=== PATIENT | female | born 1970 | race Caucasian/White ===

== ENCOUNTER 2020-07-17 00:26 | Emergency (ER) | payer OTHER ==
[~2020-07-17] VITALS: Ht 162.6 cm; Wt 62.7 kg
[~2020-07-17 00:26] MED LIST: METOPROLOL25 M1 OR
[2020-07-17] MEDS ORDERED: LEVOTHYROXIN75 MC1 PO (00:47)
[2020-07-17] MEDS ORDERED: PRAVASTATIN40 MG PO (00:47)
[2020-07-17] MEDS ORDERED: LOTENSIN HCT1 TA2 PO (00:47)
[2020-07-17 01:19] LABS: HEMOGLOBIN 12.5 g/dl (12.0-16.0); IMMATURE GRANULOCYTES 0.4 % (0.0-5.0); MEAN CELL VOLUME 90.9 fL CALC (80.0-100.0); MEAN CORPUSCULAR HGB 30.7 pG CALC (26.0-32.0); MEAN CORPUSCULAR HGB CONC 33.8 g/dL CAL (32.0-36.0); NEUT# 5.86 thou/uL (2.00-7.15); RED BLOOD COUNT 4.07 mill/uL (4.20-5.60); RED CELL DISTRI WIDTH 12.3 % (11.5-15.5)
[2020-07-17 01:39] LABS: ALBUMIN 4.2 g/dL (3.2-5.0); ALKALINE PHOSPHATASE 116 u/l (38-126); ANION GAP 13 (6-22 (CALC)); BILIRUBIN, TOTAL 0.3 mg/dL (0.0-1.4); BUN 25 mg/dL (7-17); BUN/CREATININE RATIO 28 (12-20 (CALC)); CARBON DIOXIDE 24 mmol/l (22-30); CHLORIDE 100 mmol/l (95-108); CREATININE 0.9 mg/dL (0.5-1.0); GFR > 60 ML/MIN (>=60 (CALC)); GFR FOR AFR.AMER. > 60 ML/MIN (>=60 (CALC)); POTASSIUM 3.5 mmol/l (3.5-5.1); SODIUM 133 mmol/l (137-146); TOTAL PROTEIN 6.9 g/dL (6.3-8.2)
[2020-07-17 01:52] LABS: MYOGLOBIN 34 ng/mL (0 - 62)
[2020-07-17 01:55] LABS: SGOT/AST 57 u/l (14-36)
[2020-07-17] MEDS ORDERED: ZPAK PO (02:40)
[2020-07-17 03:00] VITALS: BP 151/70
== END 2020-07-17 03:00 | disposition home or self-care (01) | DRG 179 ==
LOC: ED 00:26
PROVIDERS: Emergency Medicine
DX: U07.1 COVID-19 (principal); I10 Essential (primary) hypertension; E78.00 Pure hypercholesterolemia, unspecified; E05.90 Thyrotoxicosis, unspecified without thyrotoxic crisis or storm; F17.290 Nicotine dependence, other tobacco product, uncomplicated